=== PATIENT | female | born 1940 | race Caucasian/White ===

== ENCOUNTER 2016-12-18 16:00 | Inpatient (IN) | payer MEDICARE, OTHER ==
[~2016-12-18] VITALS: Ht 152.4 cm; Wt 56.7 kg
--- NOTE | ~2016-12-18 | DS ---
PATIENT'S NAME: JYOTSNA LITTLE [facility] AGE: 76 Y [address] ROOM: [place] [address] LOCATION: [facility] ADMIT DATE: 01/02/2017 Discharge Summary DISCHARGE DATE: 01/04/2017 FAMILY PHYSICIAN: Robert Francisco PA-C ATTENDING PHYSICIAN: Reza Flores PRIMARY DIAGNOSIS: Degenerative joint disease of right knee. SECONDARY DIAGNOSES: 1. Hypertension. 2. Dementia. PROCEDURE: Left total knee arthroplasty with computer assisted navigation. HISTORY OF PRESENT ILLNESS: The patient is a 76-year-old female who presented with advanced right knee degenerative joint disease and associated severely compromised activities of daily living. The patient has decided to proceed with total knee arthroplasty after having been thoroughly counseled regarding the risks, benefits, limitations, receiving limitations and alternatives. Please refer to the outpatient clinic notes and admission history and physical for this patient. HOSPITAL COURSE: The patient underwent right knee total arthroplasty on January 02, 2017, without complications. Spinal anesthesia with sedation and peripheral nerve block was utilized. The patient received 24 hours of postoperative prophylactic antibiotics and remained hemodynamically stable, neurovascularly intact throughout the entire hospital course. The patient's postoperative deep vein thrombosis prophylaxis consisted of Xarelto, early mobilization, and pneumatic compression devices. Daily physical therapy for gait training, transfer training, range of motion, and quadriceps isometric exercises were received. The patient progressed well in physical therapy. On the date of discharge, January 04, 2017, the incision at the knee was healing well and showed no signs of infection. DISPOSITION: Home. DISCHARGE ACTIVITY: The patient is to be weightbearing as tolerated with range of motion and quadriceps isometric exercises as instructed. Operative extremity is to elevated 90% of the day. The Mepilex dressing covering the patient's surgical incision is to be kept on until the patient is seen in followup. Dr. Flores is to be notified immediately if there are any increased pain, fevers, chills, erythema, or drainage. DISCHARGE MEDICATIONS: Stopped medication: Krill oil. PATIENT'S NAME: JYOTSNA LITTLE [facility] AGE: 76 Y [address] ROOM: [address] [address] LOCATION: N ADMIT DATE: 01/02/2017 Discharge Summary DISCHARGE DATE: 01/04/2017 FAMILY PHYSICIAN: Robert Francisco PA-C ATTENDING PHYSICIAN: Reza Flores New medications: 1. Amlodipine 5 mg p.o. at h.s. 2. Colace 100 mg p.o. b.i.d. as needed for constipation. 3. MiraLAX 17 g oral powder p.o. q.12 hours as needed for constipation. 4. Xarelto 10 mg p.o. daily to be continued, last dose to be taken until January 14, 2017. 5. Acetaminophen 325 mg every 6 hours as needed for pain. 6. [place] 5/325 one to two tabs every 4 hours as needed for pain. 7. Diazepam 2 mg p.o. at night p.r.n. muscle spasms. The patient was instructed otherwise to continue her preoperative medications as instructed by their internal medicine doctor. FOLLOWUP: The patient is to follow up in Dr. Flores's office on January 18, 2017, at 10 a.m. for the initial postoperative evaluations with x-rays and staple removal. The patient is also to follow up with JULIANO Yadav, on January 07, 2017, at 2:00 p.m. for repeat blood pressure check. HAVEN BRADSHAW PA-C FOR MD TYRONE GUADALUPE/catarino /[id number] d: 01/12/17309 t: 01/15/17 1341, DISCHARGE SUMMARY
--- NOTE | ~2016-12-18 | OR ---
[facility] 76 [facility] [address] ROOM: [place] [address] LOCATION: [facility] ADMIT DATE: 01/02/2017 OR/Procedure Report DISCHARGE DATE: FAMILY PHYSICIAN: Robert Francisco PA-C ATTENDING PHYSICIAN: JERRELL MONGE SURGEON: Jerrell Monge MD CONSERVATION ENGINEER: Lamonte Iglesias PA-C. DATE OF PROCEDURE: 01/02/2017 PREOPERATIVE DIAGNOSIS: Left knee end-stage primary osteoarthritis. POSTOPERATIVE DIAGNOSIS: Left knee end-stage primary osteoarthritis. PROCEDURE: Left total knee arthroplasty with computer-assisted navigation. ANESTHESIA: Spinal anesthesia with sedation and peripheral nerve block. FLUIDS: See Anesthesia report. ESTIMATED BLOOD LOSS: Minimal. TOURNIQUET: Left proximal thigh 250 mmHg. SPECIMEN: None. COMPLICATIONS: None. DISPOSITION: Stable in PACU. COUNT: All counts correct. IMPLANTS: [place] total knee arthroplasty system size 5 tibia base plate, size 4 posterior stabilized femoral component, size 29 asymmetric patella, 16- mm thick polyethylene insert, and Simplex antibiotic bone cement. INDICATIONS: Ms. Mccartney is a pleasant 76-year-old female who underwent the noted procedures above. The risks, benefits, and alternatives of pursuing the surgical intervention were discussed with the patient in detail. The patient elected to proceed with surgery. Anesthesia was consulted for their perioperative evaluation of the patient. I marked the left lower extremity indicating the correct surgical site. DESCRIPTION OF PROCEDURE: The patient was taken from the holding area to the operating room. A time-out was performed. General endotracheal anesthesia was administered. The left lower extremity was then prepped and draped in a PATIENT'S NAME: JYOTSNA MCCARTNEY [facility] AGE: 76 Y [address] ROOM: [address] [address] LOCATION: [facility] ADMIT DATE: 01/02/2017 OR/Procedure Report DISCHARGE DATE: FAMILY PHYSICIAN: Robert Francisco PA-C ATTENDING PHYSICIAN: JERRELL MONGE sterile fashion. I turned my attention to the left knee. A final time-out was performed. Perioperative antibiotics were administered for perioperative prophylaxis. An Esmarch was used to exsanguinate the limb, and the tourniquet was inflated to 250 mmHg. I turned my attention to the left knee. I made a median parapatellar incision to access the knee joint. I subsequently dislocated the knee. I began by using my navigation system to make my distal femoral bony cut. Once I was satisfied with this, I turned my attention to the proximal tibia and using a computer navigation, made my proximal tibia cut. I checked for my for my box alignment and found it to be in stable alignment. Then, I turned my attention back to the distal femur and prepared the distal femoral cuts. I placed my trial component. I then turned my attention back to the tibia subsequently sized it and then broached for my tibia base plate. I subsequently reduced the joint and took it through a range of motion and found that the knee was stable, 0 degrees of flexion up to 130 degrees of flexion. The collaterals were slightly loosened, this is likely because the patient had previous surgery either ACL/PCL reconstruction or perhaps even lateral collateral ligament reconstruction 30 or 40 years ago. I was forced to use a larger polyethylene liner to stabilize the knee joint. The anterior and posterior collateral ligaments were removed during preparation and the medial and lateral menisci were removed during preparation as well. I then turned my attention to the patella. Using a caliper, I measured its depth. I used a jig and made my patella cut. I then measured for and placed a trial patella button. Once the joint was reduced, it was taken through a range of motion and had full range of motion and the patellar tracking was stable. All the trial components were removed. The bony surfaces were prepared by copiously irrigating the surgical area with normal sterile saline solution via pulsatile lavage. Again, cementing the final components were placed beginning with the tibia. The excess cement was removed from the distal tibia component. Then, I turned my attention to the femur and then placed and removed the excess cement around it. This was repeated for the patella. The components were allowed to dry. The knee was then taken through a range of motion and deemed stable. The excess cement was removed from around all the components. The 11, 13, and 16 trial polyethylenes were used. The 16 was most stable. The medial collateral ligament was palpable, the lateral collateral ligament was quite lax. I found that the knee was stable in full extension and full flexion without any evidence of mid flexion instability with the size 16 polyethylene liner. This was selected for final implantation. PATIENT'S NAME: JYOTSNA MCCARTNEY [facility] AGE: 76 Y [address] ROOM: [address] [address] LOCATION: [facility] ADMIT DATE: 01/02/2017 OR/Procedure Report DISCHARGE DATE: FAMILY PHYSICIAN: Robert Francisco PA-C ATTENDING PHYSICIAN: JERRELL MONGE The surgical area was then anesthetized with a cocktail of anesthetic fluids. The knee was then closed using Stratafix barbed suture to approximate the capsule and then the knee was taken through range of motion and deemed to be stable with full range of motion. The wound was then closed in layers beginning with 0 Vicryl suture, followed by 2-0 Vicryl suture and carroll to approximate the skin. Sterile dressing was placed in the form of Mepilex followed by Webril and Giuliano bandage. The tourniquet was let down. The patient was then transferred from the operating table onto the stretcher and brought to recovery room in stable condition. There were no intraoperative complications noted. Of note, my PA, Lamonte Iglesias PA-C, played an integral role in the intraoperative care of this patient. This included preoperative positioning, intraoperative expert retraction, and closing and dressing functions. IMPRESSION: The patient is status post the noted procedures above. PLAN: The patient will be weightbearing as tolerated in the left lower extremity. Postoperative pain control in the form of Percocet and IV morphine as needed for pain. Physical Therapy and Occupational Therapy will be consulted for early ambulation and prevention of deconditioning. The hospitalist will be consulted to manage the patient's concomitant medical comorbidities. DVT prophylaxis will be in the form of Lovenox. Postoperative antibiotics will also be administered per routine. I will continue to monitor the patient closely in the postoperative period. MD SANTIAGO GUADALUPE/catarino /[id number] d: 01/02/172022 t: 01/03/17816, OPERATIVE SUMMARY
[~2016-12-18 16:00] MED LIST: ARICEPT10 MG PO; KRILL OIL 1,001 EAC1 PO; MOBIC7.5 MG PO; NAMENDA5 MG PO; PAXIL20 MG PO; TRUSOPT 2% OPTH10 ML OPHTH; WAL-ZYR10 M1 PO; ZESTRIL2.5 MG PO
--- NOTE | 2017-01-02 17:21 | NUR ---
Significant Event:Patient recieved from PACU at 1515. First hourly at 1900. Dressing dry and intact to lt knee. Full sensation. No void. Telemetry. HR in 50's. Continuous ETCO2. Family at bedside. Follow up:
--- NOTE | 2017-01-02 17:35 | NUR ---
Introduced self/role to patient and daughters at bedside. Patient attended preop joint class with her daughter. Reports she lives in one level apartment in [place] with her spouse. Has cane, bath seat, wall mounted grab bar, sas architect and hand held shower in her walk in shower. Planned to return home with help from family and friend. May be interested in HH if advised. Reviewed importance of deep breathing. Encouraged foot pumps when able. Has bilat foot sequentials in place. Will follow and assist as needed/advised.
--- NOTE | 2017-01-03 04:27 | NUR ---
Significant Event: Alert, oriented to person and place. History of dementia. Repetitive comments and questions. Family at bedside, helping reorient patient frequently. Pt has not slept tonight. Tried several interventions to aid sleep, remains restless. Etc02 removed due to patient agitation. Etc02 ranged from 32-36. Saline locked IV to L FA. On telemetry- no calls. IS use. Voiding without difficulty. Dressing to L) knee is CDI. Up with 2 person assist, gait belt and walker. CSM WNL. Ice to knee. Bilateral foot pumps. [place] given X2 last at 2243. Tylenol given at 0410. Follow up:
[2017-01-03 05:39] LABS: HEMATOCRIT 33.6 % (33.0-46.0); HEMOGLOBIN 10.9 g/dL (10.0-15.0)
--- NOTE | 2017-01-03 16:40 | NUR ---
Attempted to see patient/her family 3 times today but they were not here. Will follow up with them tomorrow about discharge plans. Per staff need to talk with family as she has dementia and they will be her care takers.
--- NOTE | 2017-01-03 17:14 | NUR ---
Significant Event: Ambulates with one assist, walker and gaitbelt. Voids without difficulty. Dressing C/D/I, ez wrap ice at all times. CSM WNL. Patient disoriented to place/time. Is better when daughter is in room. Tele d/cd. Has dementia, repetative questions and comments through the day. Daughter here most of shift. [place] 1 tab last at 1314 and Toradol 15mg last at 1523. Orders for Valium 2.5mg HS PRN per family request. Follow up:
--- NOTE | 2017-01-04 03:57 | NUR ---
Patient is alert and oriented to self, very confused at times, needs redirection frequently and reinforcement with all teaching, dressing clean dry and intact, csm with in normal limits, ambulates fair one assist with lots of cueing, continent of bowel and bladder, has set of bed alarm at least qhour tonight, daughter has been at bedside all of this shift
--- NOTE | 2017-01-04 12:00 | NUR ---
Introduced self/role to patient and her daughter Kristine. Kristine will be there to assist mom. Planning on outpatient therapies. She denied any DME needs or barriers to going home. Plans to go home today at 1500.
[2017-01-04] MEDS ORDERED: NORVASC5 MG PO (15:18)
[2017-01-04] MEDS ORDERED: COLACE100 MG PO (15:19)
[2017-01-04] MEDS ORDERED: MIRALAX17 GM PO (15:22)
[2017-01-04] MEDS ORDERED: XARELTO10 MG PO (15:23)
[2017-01-04] MEDS ORDERED: NORCO 5-325 TA1 EACH PO (15:24)
[2017-01-04] MEDS ORDERED: TYLENOL325 MG PO (15:24)
[2017-01-04] MEDS ORDERED: VALIUM2 MG PO (15:25)
--- NOTE | 2017-01-04 16:30 | NUR ---
D: Patient dismissed to home with daughter's assist. Patient disoriented. Mepilex dressing intact to lt knee with small amount of drainage. CSM WNL. Taking analgesic prn for pain with relief. Patient's daughter voices understanding of dismissal instructions. Dismissed with dismissal instructions, rx and belongings.
== END 2017-01-04 16:41 | disposition disaster alternative care site (69) | DRG 470 ==
LOC: G3N 01-02 07:51
PROVIDERS: ADMIT Orthopaedic Surgery Adult Reconstructive Orthopaedic Surgery
PROC: 8E0YXBZ Computer Assisted Procedure of Lower Extremity (ICD-10-PCS; principal; 2017-01-02)
PROC: 0SRD0J9 Replacement of Left Knee Joint with Synthetic Substitute, Cemented, Open Approach (ICD-10-PCS; principal; 2017-01-02)
DX: M17.12 Unilateral primary osteoarthritis, left knee (principal); G30.9 Alzheimer's disease, unspecified; R00.1 Bradycardia, unspecified; I10 Essential (primary) hypertension; F02.80 Dementia in other diseases classified elsewhere, unspecified severity, without behavioral disturbance, psychotic disturbance, mood disturbance, and anxiety; F32.9 Major depressive disorder, single episode, unspecified; F41.9 Anxiety disorder, unspecified; H40.9 Unspecified glaucoma; J30.9 Allergic rhinitis, unspecified; Z23 Encounter for immunization
CPT/HCPCS: C1713; C1776; G0009; J0690; J1100; J1885; J2250; J2795; J7120

== ENCOUNTER → 2016-12-20 | Outpatient (CLI) | payer MEDICARE, OTHER ==
[~2016-12-20] MED LIST changes: +COLACE100 MG PO; +MIRALAX17 GM PO; +NORCO 5-325 TA1 EACH PO; +NORVASC5 MG PO; +TYLENOL325 MG PO; +VALIUM2 MG PO; +XARELTO10 MG PO
== END | disposition disaster alternative care site (69) ==
LOC: GNJRC 10:11
DX: Z01.812 Encounter for preprocedural laboratory examination (principal); M17.12 Unilateral primary osteoarthritis, left knee